=== PATIENT | female | born 1985 | race Caucasian/White ===

== ENCOUNTER → 2017-06-20 | Day surgery (SDC) | payer BC ==
[~2017-06-20] MED LIST: APREPITANT 40 MG CAP ONE; CLINDAMYCIN PHOS 600 MG/4 ML VIAL ONE; HYDROCORTISONE SOD SUCCINATE 100 MG VIAL ONE; KETOROLAC TROMETHAMINE 30 MG/ML (IVP) VIAL IV PUSH ONE; LACTATED RINGER'S 1000 ML INJ 1,000 ML ONE; METHYLENE BLUE 100 MG/10 ML VIAL ONE; MIDAZOLAM HCL 2 MG/2 ML VIAL ONE; MORPHINE SULFATE 4 MG/ML INJ ONE; ONDANSETRON 40 MG/20 ML VIAL IV ONE; PROPOFOL 200 MG/20 ML AMP IV ONE; SODIUM CHLORIDE 0.9% SOLN 100 ML BAG IV ONE; TAB-TAB PO; VITA100017 PO
--- NOTE | 2017-06-20 10:20 | MP ---
cc: GE BOWLING DATE OF SURGERY: 06/20/2017 PREOPERATIVE DIAGNOSIS Right ovarian dermoid cyst. POSTOPERATIVE DIAGNOSIS Right ovarian dermoid cyst. PROCEDURE Diagnostic laparoscopy, right ovarian cystectomy. SURGEON MD Dash. ANESTHESIA General. ESTIMATED BLOOD LOSS 30 cc. COMPLICATIONS None. FINDINGS The patient had a benign-appearing dermoid cyst, approximately 3 x 3 cm on the right ovary. The uterus, fallopian tubes and left ovary were otherwise unremarkable. The appendix, liver, stomach and other upper abdominal organs were also grossly normal. DESCRIPTION OF PROCEDURE The patient was brought to the operating room and following general anesthesia was placed in dorsal lithotomy position. Her vagina, abdomen and perineum were prepped and draped. An acorn cannula was placed into the cervix and the bladder was drained with a red rubber catheter. A 1 cm subumbilical skin incision was made. The Veress needle was inserted and 3 liters of CO2 was infused into the abdomen. The Veress needle was then removed and a laparoscope was placed without difficulty. A second and third puncture site were created under direct visualization. The findings were as noted above. Photos of all areas were taken. The right ovary was grasped and a 2 cm incision was made in the capsule. The cyst was drained of as much fluid as possible and the cyst wall was grasped and the cyst was easily teased off of the ovarian capsule. The cyst and its contests was placed in the anterior cul-de-sac and then into an EndoCatch bag and removed easily. Minimal spillage from the cyst was noted. The pelvis and lower abdomen were copiously irrigated. Good hemostasis was noted. The ovary did not require suturing. All instruments were then removed and the CO2 gas was allowed to escape. The incisions were then closed with a subcuticular 4-0 Vicryl stitch. The patient was then taken to the recovery room in good condition with all counts correct. She will be discharged home when stable and alert to follow-up in one week in our office. Her discharge medication will be Percocet. She was given instructions on physical activity and instructed to resume her regular diet as tolerated. Ge Bowling MD TGS/BT /9:43 AM /10:18 AM
== END | disposition home or self-care (01) ==
LOC: ESDC 07:54
PROVIDERS: ATTEND Obstetrics & Gynecology
DX: D27.0 Benign neoplasm of right ovary (principal)
CPT/HCPCS: 00840; 58662; 88307; 88311; J1720; J1885; J2250; J2270; J2405; J3010; J7120; J8501; 88304